=== PATIENT | female | born 1990 | race Caucasian/White ===

== ENCOUNTER 2018-09-22 23:04 | Emergency (ER) | payer OTHER ==
[~2018-09-22] VITALS: Ht 170.2 cm; Wt 65.9 kg
[2018-09-22] MEDS ORDERED: PROZ20CA11 PO (23:12)
[2018-09-22] MEDS ORDERED: VALT1TAB PO (23:13)
[2018-09-22] MEDS ORDERED: TRI-TAB2 PO (23:13)
[2018-09-23] MEDS ORDERED: METOCLOPRAMIDE INJ 10MG/2ML VIAL (J2765) IV ONE
[2018-09-23] MEDS ORDERED: KETOROLAC 30 MG/ML VIAL (J1885) IV ONE
[2018-09-23] MEDS ORDERED: diphenhydrAMINE INJ 50MG/ML VIAL (J1200) IV ONE
[2018-09-23] MEDS ORDERED: NS 1,000 ML IV ONE
[2018-09-23 00:21] LABS: BASO % 0.2 % (0.0-1.0); EOS # 0.1 10^3/uL (0.0-0.50); EOS % 0.6 % (0.0-3.0); HEMATOCRIT 41.2 % (36.0-47.0); HEMOGLOBIN 14.8 g/dl (12.0-15.5); LYMPH # 2.2 10^3/uL (1.5-6.5); LYMPH % 24.7 % (24.0-44.0); MEAN CORPUSCULAR HEMOGLOBIN 35.2 pg (27.0-33.0); MEAN CORPUSCULAR HGB CONC 35.9 g/dl (32.0-36.5); MEAN CORPUSCULAR VOLUME 97.9 fl (80.0-96.0); MONO # 0.7 10^3/uL (0.0-0.8); MONO % 8.2 % (0.0-5.0); NEUTROPHILS # 5.8 10^3/uL (1.8-7.7); NEUTROPHILS % 66.2 % (36.0-66.0); PLATELET COUNT, AUTOMATED 203 10^3/uL (150-450); RED BLOOD COUNT 4.21 10^6/uL (4.00-5.40); WHITE BLOOD COUNT 8.7 10^3/uL (4.0-10.0)
[2018-09-23 00:50] LABS: BLOOD UREA NITROGEN 14 MG/DL (7-18); CARBON DIOXIDE LEVEL 27 MEQ/L (21-32); CHLORIDE LEVEL 104 MEQ/L (98-107); CREATININE FOR GFR 0.86 MG/DL (0.55-1.30); GLOMERULAR FILTRATION RATE > 60.0 (>60); GLUCOSE, FASTING 90 MG/DL (70-100); POTASSIUM SERUM 4.1 MEQ/L (3.5-5.1); SODIUM LEVEL 139 MEQ/L (136-145)
--- NOTE | 2018-09-23 00:57 | REPVR ---
EXAM: CT Maxillofacial Without Contrast, Sinus EXAM DATE/TIME: 09/22/2018 12:17 AM CLINICAL HISTORY: 28 years old, female; Pain and signs and symptoms; Nasal congestion; Headache; Type not specified; Additional info: Headache, sinus drainage TECHNIQUE: Imaging protocol: CT Maxillofacial without intravenous contrast. Focus on the sinuses. Coronal reformatted images were created and reviewed. Radiation optimization: All CT scans at this facility use at least one of these dose optimization techniques: automated exposure control; mA and/or kV adjustment per patient size (includes targeted exams where dose is matched to clinical indication); or iterative reconstruction. COMPARISON: No relevant prior studies available. FINDINGS: Frontal sinuses: Normal. No air-fluid levels. Ethmoid air cells: Sphenoid and to a lesser degree bilateral maxillary and ethmoid sinus mucosal thickening. Sphenoid sinuses: Normal. No air-fluid levels. Maxillary sinuses: Normal. No air-fluid levels. Nasal cavity/Septum: No significant deviation of the nasal septum. Obstruction of the ostiomeatal complexes bilaterally due to congestion in the area. Soft tissues: Unremarkable. 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 IMPRESSION: 1. Sphenoid and to a lesser degree ethmoid and bilateral maxillary sinus disease. 2. Obstruction of the ostiomeatal complexes bilaterally due to congestion in the area. Electronically signed by: Samuel Miranda On 09/23/2018 00:57:22 AM
--- NOTE | 2018-09-23 01:00 | REPVR ---
EXAM: CT Head Without Contrast EXAM DATE/TIME: 09/22/2018 12:17 AM CLINICAL HISTORY: 28 years old, female; Pain; Headache not specified; Additional info: Headache, sinus drainage TECHNIQUE: Imaging protocol: Axial computed tomography images of the head without contrast. Radiation optimization: All CT scans at this facility use at least one of these dose optimization techniques: automated exposure control; mA and/or kV adjustment per patient size (includes targeted exams where dose is matched to clinical indication); or iterative reconstruction. COMPARISON: No relevant prior studies available. FINDINGS: Brain: Normal. No hemorrhage. Unremarkable white matter. No mass effect. Ventricles: Normal. No ventriculomegaly. Bones/joints: Unremarkable. No acute fracture. Sinuses: Sphenoid and ethmoid sinus mucosal thickening. Mastoid air cells: Visualized mastoid air cells are well aerated. No mastoid effusion. Soft tissues: Unremarkable. IMPRESSION: 1. Ethmoid and sphenoid sinus disease. 2. Otherwise negative noncontrast head CT. Electronically signed by: Samuel Miranda On 09/23/2018 00:59:57 AM
[2018-09-23 01:45] VITALS: BP 123/69
[2018-09-23] MEDS ORDERED: AMOXICILLIN 500 MG CAP PO ONE (02:15)
[2018-09-23] MEDS ORDERED: AMOX500C PO (02:16)
== END 2018-09-23 02:45 | disposition home or self-care (01) ==
LOC: M ED 23:04
DX: J32.3 Chronic sphenoidal sinusitis (principal); Z79.899 Other long term (current) drug therapy
CPT/HCPCS: 70450; 70486; 80048; 85025; 96374; 96375; 99284; J1200; J1885; J2765

== ENCOUNTER → 2019-07-24 | Outpatient (REF) | payer OTHER ==
[~2019-07-24] MED LIST: AMOX500C PO; PROZ20CA11 PO; TRI-TAB2 PO; VALT1TAB PO
[2019-07-24 16:25] LABS: BASO % 0.4 % (0.0-1.0); EOS % 0.6 % (0.0-3.0); HEMATOCRIT 43.2 % (36.0-47.0); HEMOGLOBIN 15.2 g/dl (12.0-15.5); MEAN CORPUSCULAR HEMOGLOBIN 34.9 pg (27.0-33.0); MEAN CORPUSCULAR HGB CONC 35.2 g/dl (32.0-36.5); MEAN CORPUSCULAR VOLUME 99.1 fl (80.0-96.0); MONO # 0.4 10^3/uL (0.0-0.8); MONO % 8.6 % (0.0-5.0); NEUTROPHILS # 2.4 10^3/uL (1.5-8.5); NEUTROPHILS % 50.2 % (36.0-66.0); PLATELET COUNT, AUTOMATED 183 10^3/uL (150-450); RED BLOOD COUNT 4.36 10^6/uL (4.00-5.40); WHITE BLOOD COUNT 4.9 10^3/uL (4.0-10.0)
[2019-07-24 16:30] LABS: ALBUMIN 4.4 GM/DL (3.2-5.2); ALT/SGPT 21 U/L (12-78); BILIRUBIN,TOTAL 1.3 MG/DL (0.2-1.0); BLOOD UREA NITROGEN 14 MG/DL (7-18); CALCIUM LEVEL 9.4 MG/DL (8.5-10.1); CARBON DIOXIDE LEVEL 30 MEQ/L (21-32); CHLORIDE LEVEL 103 MEQ/L (98-107); CREATININE FOR GFR 1.05 MG/DL (0.55-1.30); GLOMERULAR FILTRATION RATE > 60.0 (>60); GLUCOSE, FASTING 87 MG/DL (70-100); POTASSIUM SERUM 4.4 MEQ/L (3.5-5.1); SODIUM LEVEL 137 MEQ/L (136-145); TOTAL PROTEIN 7.1 GM/DL (6.4-8.2)
== END ==
LOC: M LAB REF 16:05 → M LABDRWAD 16:05
PROVIDERS: ATTEND Physician Assistant
DX: R10.30 Lower abdominal pain, unspecified (principal); R30.0 Dysuria

== ENCOUNTER 2020-06-13 10:57 | Inpatient (IN) | payer OTHER ==
[~2020-06-13] VITALS: Ht 170.2 cm; Wt 86.2 kg
[2020-06-13] VITALS (31 sets, daily range): BP systolic 108–203; BP diastolic 56–150
--- OUTSIDE RECORDS SUMMARY | 2020-06-13 11:34 | CCD ---
Author Author [facility] Organization [facility] Address Unknown Phone Unavailable Care Team Providers Care Advertising Sales Associate Name Role Phone BILLY ENRIQUE Unavailable Unavailable RING, K FAIZAN PA Unavailable Unavailable RING, K FAIZAN PA Unavailable Unavailable RING, K FAIZAN PA Unavailable Unavailable RING, K FAIZAN PA Unavailable Unavailable RING, K FAIZAN PA Unavailable Unavailable RING, K FAIZAN PA Unavailable Unavailable RING, K FAIZAN PA Unavailable Unavailable RING, K FAIZAN PA Unavailable Unavailable RING, K FAIZAN PA Unavailable Unavailable RING, K FAIZAN PA Unavailable Unavailable RING, K FAIZAN PA Unavailable Unavailable RING, K FAIZAN PA Unavailable Unavailable RING, K FAIZAN PA Unavailable Unavailable RING, K FAIZAN PA Unavailable Unavailable RING, K FAIZAN PA Unavailable Unavailable RING, K FAIZAN PA Unavailable Unavailable RING, K FAIZAN PA Unavailable Unavailable RING, K FAIZAN PA Unavailable Unavailable RING, K FAIZAN PA Unavailable Unavailable RING, K FAIZAN PA Unavailable Unavailable RING, K FAIZAN PA Unavailable Unavailable Re-disclosure Warning The records that you are about to access may contain information from federally-assisted alcohol or drug abuse programs. If such information is present, then the following federally mandated warning applies: This information has been disclosed to you from records protected by federal confidentiality rules (42 CFR part 2). The federal rules prohibit you from making any further disclosure of this information unless further disclosure is expressly permitted by the written consent of the person to whom it pertains or as otherwise permitted by 42 CFR part 2. A general authorization for the release of medical or other information is NOT sufficient for this purpose. The Federal rules restrict any use of the information to criminally investigate or prosecute any alcohol or drug abuse patient.The records that you are about to access may contain highly sensitive health information, the redisclosure of which is protected by Article 27-F of the [facility] Public Health law. If you continue you may have access to information: Regarding HIV / AIDS; Provided by facilities licensed or operated by the [facility] Office of Mental Health; or Provided by the [facility] Office for People With Developmental Disabilities. If such information is present, then the following [facility] mandated warning applies: This information has been disclosed to you from confidential records which are protected by state law. State law prohibits you from making any further disclosure of this information without the specific written consent of the person to whom it pertains, or as otherwise permitted by law. Any unauthorized further disclosure in violation of state law may result in a fine or nursing home sentence or both. A general authorization for the release of medical or other information is NOT sufficient authorization for further disc losure. Family History Family Member Name Family Member Gender Family Member Status Date o f Status Description Data Source(s) Unknown Unknown Problem [facility] ([facility]) Encounters Encounter Providers Location Date Indications Data Source(s ) Outpatient Attender: BILLY ENRIQUE 06/07/2020 01:00:00 PM [facility] Outpatient Attender: FAIZAN Guerin 07/24/2019 11:45:00 AM EDT [facility] ([facility]) Insurance Providers Payer name Policy type / Coverage type Policy ID Covered alliance party ID Covered alliance party's relationship to merrill Policy Merrill Plan Information [facility] [id number] SP [id number] [facility] [id number] [facility] [id number] [facility] Commercial [id number] Self [id number] Results ID Date Data Source [id number] 07/24/2019 12:45:00 PM EDT [facility] ([facility]) Name Value Range Interpretation Code Description Data [place] rce(s) Supporting Document(s) Bacteria identified in Urine by Culture <pending> [facility] ([facility]) Procedure Vital Signs ID Date Data Source UNK Name Value Range Interpretation Code Description Data Source(s) Body mass index (BMI) [Ratio] 22.7 kg/m2 22.7 k g/m2 [facility] ([facility]) Body height 67 [in_i] 67 [in_i] [facility] ([facility]) 5'7" Body weight 145.00 [lb_av] 145.00 [lb_av] [facility] T ([facility], [facility]) Body temperature 98.9 [degF] 98.9 [degF] [facility] ([facility], [facility]) Oxygen saturation in Arterial blood by Pulse oximetry 98 % 98 % [facility] ([facility], [facility]) Respiratory rate 16 /min 16 /min [facility] ( [facility], [facility]) Heart rate 84 /min 84 /min [facility] ([facility], [facility]) Diastolic blood pressure 86 mm[Hg] 86 mm[Hg] [facility] ([facility], [facility]) Systolic blood pressure 124 mm[Hg] 124 mm[Hg] [facility] ([facility], [facility])
[2020-06-13 11:55] LABS: HEMOGLOBIN 13.7 g/dl (12.0-15.5); MEAN CORPUSCULAR HEMOGLOBIN 31.6 pg (27.0-33.0); MEAN CORPUSCULAR HGB CONC 33.4 g/dl (32.0-36.5); MEAN CORPUSCULAR VOLUME 94.7 fl (80.0-96.0); PLATELET COUNT, AUTOMATED 176 10^3/uL (150-450); RED BLOOD COUNT 4.33 10^6/uL (4.00-5.40); WHITE BLOOD COUNT 12.5 10^3/uL (4.0-10.0)
--- NOTE | 2020-06-13 11:56 | HPEPDOC ---
Obstetrical History & Physical General Date of Admission Jun 13, 2020 at 11:31 History of Present Illness 29yo at 40+1 presents to [facility] with SROM at 0400 this morning clear no odor. Notably she called the pager at 0700 and I told her to come to [facility]. She called again at 0900 and asked if she still needed to come because her contractions are regular but did not hurt and I said yes and explained that prolonged rupture without labor progression increases her risk of infection. She at this time denied n/v/d, cp, sob, estrada, visual changes, f/c, vb, decreased fm. 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 History: No pertinent history Past Medical History Medical History depression, HSV (genital on valtrex) Surgical History: Other (WTE, hand surgery, T+A) Family History Significant Family History: No pertinent family hx Social History Marital Status: Family situation: Spouse/partner home Psychosocial History: Depression * Smoker: non-smoker Alcohol: Denies Drugs: denies Imunizations Tdap status: current Influenza Status: current Allergies Coded Allergies: No Known Allergies (Unverified , 09/22/18) Medications Scheduled Amoxicillin (Amoxicillin) 500 Mg Capsule, 500 MG PO Q8H Fluoxetine HCl (Prozac) 20 Mg Capsule, 20 MG PO DAILY Norethindrone-E.estradiol-Iron (Tri-Legest Fe-28 Day Tablet) 1 Each Tablet, 1 TAB PO DAILY Valacyclovir HCl (Valtrex) 1,000 Mg Tablet, 1 TAB PO DAILY Physical Examination Physical Examination GENERAL: Alert and oriented times three. BREAST: . ABDOMEN: Gravid and non-tender to touch. FETUS: Is vertex (VTX) by sterile vaginal examination (SVE), fetus is vertex (VTX) by ultrasound PELVIC: sterile speculum exam with gross rupture of membranes noted, clear no odors copious pooling, no visible HSV lesions pt reports no prodrome HEART RATE: Regular rate and rhythm. LUNGS: Clear to auscultation (CTA). EXTREMITIES: No edema. No clonus. Laboratory Data 24H LABS Laboratory Tests 2 06/13/20 11:34: Serology Scanned Report Hepatitis B Testing Urine Culture: No Growth Pertinent Laboratoy Data Blood Type: A+ RBC Antibody Screen: Negative HIV: Negative Hepatitis B: Negative Rapid Plasma Reagin: Nonreactive Rubella: Immune Varicella: Immune Chlamydia/Gonorrhea: Negative Group B Streptococcus: Negative Quad Screen Test: Negative Cystic Fibrosis: Negative Glucose Tolerance Test: 120 Anatomy Ultrasound Placenta Location: Posterior Normal Anatomy: Yes Placenta Previa: No Estimated Weight (grams): 3200 Steroid Therapy Steroid Therapy: No Vaginal Examination Dilation: 3 cm Effacement: 50% Station: -3 Cervical Consistency: Soft Cervical Position: Middle Presentation: Cephalic presentation (by ultrasound) Assessment Heart Rate (FHR): 130 Variability: Moderate Accelerations: Positive Decelerations: Late Tocometer Contractions: Yes Frequency: regular Multi-drug resistant Organism: No history of MDRO Assessment/Plan Assessment 29yo at 40+1 presents to L+D with SROM at 0400 this morning clear no odor. VS with mild range BP otherwise normal. No si/sx of pre-e. CAT II tracing for late decels x2 since admit but moderate variability overall reassuring. Sterile spec exam with no HSV lesions and gross ROM. SVE 3/50/-3. APC 1. genital HSV on valtrex, no lesions on spec exam, no prodrome 2. depression, no meds, denied si/hi Rh pos, GBS neg, ceph by US, EFW 3200 Plan - admit to L+D, plan to reassess in 2h and if no change will start pitocin for labor augmentation - will reassess BP serially, if continues to be mild range will order tox labs, currently no si/sx of pre-e - clear liquid diet - activity as tolerated - VS per routine - educated on risks of , CD, operative delivery - Anesthesia to see MARVIN Fields DO Jun 13, 2020 11:56
[2020-06-13] MEDS ORDERED: PRENTAB9 PO (12:03)
[2020-06-13 13:32] LABS: ALBUMIN 2.8 GM/DL (3.2-5.2); ALT/SGPT 22 U/L (12-78); BILIRUBIN,TOTAL 0.5 MG/DL (0.2-1.0); BLOOD UREA NITROGEN 13 MG/DL (7-18); CALCIUM LEVEL 8.6 MG/DL (8.5-10.1); CARBON DIOXIDE LEVEL 22 MEQ/L (21-32); CHLORIDE LEVEL 107 MEQ/L (98-107); CREATININE FOR GFR 0.77 MG/DL (0.55-1.30); GLOMERULAR FILTRATION RATE > 60.0 (>60); GLUCOSE, FASTING 82 MG/DL (70-100); LDH LACTATE DEHYDROGENASE 184 U/L (84-246); POTASSIUM SERUM 4.2 MEQ/L (3.5-5.1); SODIUM LEVEL 138 MEQ/L (136-145); URIC ACID 4.3 MG/DL (2.6-6.0)
[2020-06-13 14:21] LABS: TOTAL PROTEIN,RANDOM URINE 31.7 MG/DL (0.0-12.0)
--- NOTE | 2020-06-13 16:43 | IPNPDOC ---
Obstetrical Progress Note Date of Service Jun 13, 2020 Subjective At this time patient is having painful contractions and is requesting pain medication. Objective Vital Signs Date Time Temp Pulse Resp B/P (MAP) Pulse Ox O2 Delivery O2 Flow Rate FiO2 06/13/20 14:53 71 140/92 (108) 06/13/20 11:12 97.9 18 Assessment Heart Rate (FHR): 135 Variability: Moderate Accelerations: Positive Decelerations: None Heart Rate Tracing: Category I Tocometer Contractions: Yes Frequency: regular Assessment and Plan Additional Comments 2h after admission patient's cervix had progressed from 3 to 5cm per RN exam. She was recently checked by RN and found to be unchanged at 5cm. Will start pitocin for prolonged ROM (>12h now) with slowed progress. VS normal with exception of persisting mild range BP, no si/sx of pre-e, tox labs normal. CAT I tracing, reactive. Contractions not tracing well due to patient motion but no decels and regular contractions clinically. Patient desires pain management; discussed IV pain medications, epidural, and pudendal block and the affects of each of those on both mom and baby. Patient desires epidural at this time. Plan to reassess in approx 4h or sooner if clinically indicated. MARVIN HAY DO Jun 13, 2020 16:43
[2020-06-13] MEDS ORDERED: OXYTOCIN DRIP 30 UNITS in IV 1 EA IV SCH (16:45)
[2020-06-13] MEDS ORDERED: FENTANYL 2MCG/ML ROPIVACAINE 0.2% IN 0.9% NACL 100ML IVBAG As Ordered ONE (16:51)
[2020-06-13] MEDS ORDERED: LACTATED RINGER'S 1000 ML IV PRN (17:15)
[2020-06-13] MEDS ORDERED: FENTANYL/ROPIVACAINE/NACL BAG 100 ML EPIDURAL SCH (17:15)
[2020-06-13] MEDS ORDERED: ePHEDrine SULFATE 25 MG/5 ML(5MG/ML) SYRINGE IV PRN (17:15)
[2020-06-13] MEDS ORDERED: diphenhydrAMINE 50MG/ML VIAL (J1200) IV PRN (17:15)
[2020-06-13] MEDS ORDERED: EPIDURAL/PCA KEYS XX PRN (17:15)
[2020-06-13] MEDS ORDERED: REFRIGERATOR IV KEYS XX PRN (17:15)
[2020-06-13] MEDS ORDERED: EPIDURAL COMMENT XX SCH (17:15)
[2020-06-13] MEDS ORDERED: NALOXONE INJ 0.4MG/1ML VIAL (J2310 PER 1MG) IV PRN (17:15)
[2020-06-13] MEDS ORDERED: ONDANSETRON 4MG/2ML VIAL IV PRN (17:15)
--- NOTE | 2020-06-13 18:21 | IPNPDOC ---
Obstetrical Progress Note Date of Service Jun 13, 2020 Subjective Strip note. Objective Vital Signs Date Time Temp Pulse Resp B/P (MAP) Pulse Ox O2 Delivery O2 Flow Rate FiO2 06/13/20 18:05 83 122/62 (82) 06/13/20 11:12 97.9 18 Assessment Heart Rate (FHR): 130 Variability: Moderate Accelerations: Positive Decelerations: None Heart Rate Tracing: Category I Tocometer Contractions: Yes Frequency: regular Assessment and Plan Additional Comments Patient has just gotten her epidural. Per RN pitocin could not be started at last exam to accommodate epidural. Plan for pitocin to start at this time. Patient is meeting criteria for GHTN diagnosis. Tox labs WNL. MARVIN HAY DO Jun 13, 2020 18:21
--- NOTE | 2020-06-13 19:27 | IPNPDOC ---
Obstetrical Progress Note Date of Service Jun 13, 2020 Subjective To room for routine assessment. Patient comfortable with epidural. Objective Vital Signs Date Time Temp Pulse Resp B/P (MAP) Pulse Ox O2 Delivery O2 Flow Rate FiO2 06/13/20 18:23 82 108/64 (79) 06/13/20 11:12 97.9 18 Assessment Heart Rate (FHR): 130 Variability: Moderate Accelerations: Positive Decelerations: None Heart Rate Tracing: Category I Tocometer Contractions: Yes Frequency: regular Sterile Vaginal Examination Dilation: 8 cm Effacement (%): 100% Station: -1 Cervical Consistency: Soft Cervical Position: Anterior Postion/Presentation: Cephalic presentation (by exam) Assessment and Plan Status: Reassuring Anticipate: Vaginal Delivery Additional Comments To room for routine assessment. Now been on pitocin and comfortable with epidural. I performed exam and SVE 8/C/-1. CAT I tracing, reactive. Now more normotensive with intermittent mild ranges, no si/sx of pre-e. Will reassess in 1-2h or sooner if clinically indicated. MARVIN HAY DO Jun 13, 2020 19:26
[2020-06-14] VITALS (13 sets, daily range): BP systolic 96–143; BP diastolic 55–87
[2020-06-14 00:42] LABS: CORD GAS ABE V -4.7; CORD GAS HCO3 V 22.1 MEQ/L; CORD GAS O2 SAT V 61.8 %; CORD GAS PCO2 V 46.7 mmHg; CORD GAS PH V 7.292 UNITS; CORD GAS PO2 V 29.2 mmHg; CORD GAS SBC V 19.7 MEQ/L; CORD GAS TCO2 V 23.5 MEQ/L
--- NOTE | 2020-06-14 01:20 | DNPDOC ---
[facility] Delivery Note Delivery Note DATE OF DELIVERY: 06/14/20 PREDELIVERY DIAGNOSIS: 40+2/7 weeks' gestation, spontaneous rupture of membranes, slowed labor progress, gestational hypertension POST DELIVERY DIAGNOSIS: Delivered. PROCEDURE: Vaginal delivery, second degree perineal laceration repair DIRECTOR OF STATE: Dr. Lexa Hay DO ANESTHESIA: epidural ESTIMATED BLOOD LOSS: 200 mL. FINDINGS: first weight delayed per maternal request, Score 9/9, nuchal cord times 0. DELIVERY SUMMARY: 29yo at 40+2 presents to L+D with SROM and progressed to 5cm but then required pitocin augmentation for slowed progress. During her stay she developed gestational hypertension. She progressed to C/C/+3 and with good maternal effort delivered the head in the OA position followed by the right shoulder which delivered with jatinder downward traction. The baby had spontaneous movement and cry. Cord clamping was delayed 60s and then was cut by the FOB. Cord gasses and blood were obtained. The placenta was delivered via jatinder downward traction and was confirmed to be in-tact with a 3 vessel cord. The uterus was firm with scant bleeding shortly after pitocin administration. A second degree perineal laceration and right sidewall laceration were repaired with 2-0 vicryl in the usual fashion. The perineal skin was secured with 4-0 monocryl. The surgical sites were hemostatic and the uterus remained firm. The sponge, lap, and needle counts were correct x2. There were no complications. LEXA HAY DO Jun 14, 2020 01:20
[2020-06-14] MEDS ORDERED: OXYTOCIN DRIP 30 UNITS in IV 1 EA IV SCH (01:23)
[2020-06-14] MEDS ORDERED: MOM 30ML SUSPENSION UDC PO PRN (01:30)
[2020-06-14] MEDS ORDERED: DIBUCAINE 1% OINTMENT 30GM TOP PRN (01:30)
[2020-06-14] MEDS ORDERED: IBUPROFEN 600MG TAB PO PRN (01:30)
[2020-06-14] MEDS ORDERED: ACETAMINOPHEN TAB 650MG DOSE (2X325MG) PO PRN (01:30)
[2020-06-14] MEDS: IBUPROFEN 800 MG TAB PO PRN ×3 (04:18→23:56)
[2020-06-14 04:25] LABS: HEMATOCRIT 35.3 % (36.0-47.0); HEMOGLOBIN 11.9 g/dl (12.0-15.5); MEAN CORPUSCULAR HEMOGLOBIN 32.5 pg (27.0-33.0); MEAN CORPUSCULAR HGB CONC 33.7 g/dl (32.0-36.5); MEAN CORPUSCULAR VOLUME 96.4 fl (80.0-96.0); PLATELET COUNT, AUTOMATED 141 10^3/uL (150-450); RED BLOOD COUNT 3.66 10^6/uL (4.00-5.40); WHITE BLOOD COUNT 17.3 10^3/uL (4.0-10.0)
--- NOTE | 2020-06-14 05:08 | IPNPDOC ---
Progress Note Date of Service: Jun 14, 2020 Day#: 0 Progress Note SUBJECT: To room for assessment of episode of near syncope. At this time patient reports some nausea and feeling clammy. She otherwise denied v/d, cp, sob, estrada, visual changes, severe abd pain, f/c, heavy vaginal bleeding. She does feel like she needs to urinate but cannot. She has since delivery been ambulating and tolerating PO without issue. APC 1. GHTN diagnosed during admission, normal tox labs 2. gestational thrombocytopenia, diagnosed during admission, last PLT 141 3. genital HSV, negative SSE on admit 4. depression, not on meds, denied si/hi 5. allergy to codeine OBJECTIVE: VITAL SIGNS: Within normal limits, afebrile. Alert and oriented times three. Breath sounds clear to auscultation. Heart rate: Regular rate and rhythm, no murmurs, rubs or gallops. Abdomen: Fundus firm at U-2. Soft, NTTP. [Minimal] lochia. No bleeding from laceration site. TAUS with EMZ 0.5cm without color flow, significant bladder distention noted, cath UA performed 1000cc ASSESSMENT: 29yo PPD0 s/p c/b R sidewall and 2MLL EBL 200cc has episode of near syncope with associated clammy feeling and nausea. She also cannot urinate but has the urge. VS normal. Exam with scant vaginal bleeding, firm uterus, and no bleeding from laceration site. TAUS with thin EMS and no color flow, significant bladder distention was noted and cath UA was performed with 1000cc. CBC stat obtained and H/H went from 13.7/41 to 11.9/35. Thrombocytopenia was noted. Given normal VS and lack of significant anemia of CBC near syncope is likely not related to hypovolemia. Suspect this was a vasovagal response from bladder distention. PLAN: 1. patient to urinate within next 4h spontaneously, if cannot, recommend diez for 6-12h 2. ordering CBC for 1600 to trend H/H and platelets 3. will continue to monitor symptoms and VS, if persistent will expand near syncope work up Cadence VS, I&O, 24H, Fishbone Vital Signs/I&O Vital Signs Date Time Temp Pulse Resp B/P (MAP) Pulse Ox O2 Delivery O2 Flow Rate FiO2 06/14/20 01:29 83 113/70 (84) 06/13/20 11:12 97.9 18 I&O- Last 24 Hours up to 6 AM 06/14/20 06:00 Output Total 400 ml Balance -400 ml Laboratory Data 24H LABS Laboratory Tests 2 06/13/20 11:34: Serology Scanned Report Hepatitis B Testing 06/13/20 11:44: Nucleated Red Blood Cells % (auto) 0.0, Anion Gap 9, Glomerular Filtration Rate > 60.0, Uric Acid 4.3, Calcium Level 8.6, Total Bilirubin 0.5, Aspartate Amino Transf (AST/SGOT) 17, Alanine Aminotransferase (ALT/SGPT) 22, Alkaline Phosphatase 152H, Lactate Dehydrogenase 184, Total Protein 6.0L, Albumin 2.8L, Albumin/Globulin Ratio 0.9L 06/13/20 13:44: Urine Random Creatinine 154.0, Urine Random Total Protein 31.7H 06/14/20 00:40: Cord Venous Blood pH 7.292, Cord Venous Blood PCO2 46.7, Cord Venous Blood PO2 29.2, Cord Venous Blood HCO3 22.1, Cord Venous Blood Total CO2 23.5, Cord Venous Base Excess (Actual) -4.7, Cord Venous Base Excess (Standard) 19.7, Cord Venous Blood Oxygen Saturation 61.8 06/14/20 04:17: Nucleated Red Blood Cells % (auto) 0.0 CBC/BMP Laboratory Tests 06/13/20 11:44 06/14/20 04:17 MARVIN HAY DO Jun 14, 2020 05:07
[2020-06-14] MEDS: PRENATAL VITAMINS CHEWABLE TABLET PO SCH (09:00)
[2020-06-14] MEDS: ACETAMINOPHEN 500 MG TAB PO PRN ×2 (11:08→20:25)
[2020-06-14 19:22] LABS: HEMATOCRIT 32.4 % (36.0-47.0); HEMOGLOBIN 10.8 g/dl (12.0-15.5); MEAN CORPUSCULAR HEMOGLOBIN 32.2 pg (27.0-33.0); MEAN CORPUSCULAR HGB CONC 33.3 g/dl (32.0-36.5); MEAN CORPUSCULAR VOLUME 96.7 fl (80.0-96.0); PLATELET COUNT, AUTOMATED 150 10^3/uL (150-450); RED BLOOD COUNT 3.35 10^6/uL (4.00-5.40)
[2020-06-15] MEDS: DOCUSATE SODIUM 100MG CAPSULE PO PRN ×2 (02:34→12:27)
[2020-06-15] MEDS: ACETAMINOPHEN 500 MG TAB PO PRN (04:57)
[2020-06-15 06:00] VITALS: BP 115/66
--- NOTE | 2020-06-15 08:00 | IPNPDOC ---
Progress Note Date of Service: Jun 15, 2020 Day#: 1 Progress Note SUBJECT: Caryn is a 30yo s/p over 2nd degree perineal laceration with right sulcal laceration, doing well day #1 with intrapartum course c/b GHTN. She has been ambulating, voiding spontaneously without issue and tolerating regular diet. Breast feeding without issue. Reports lochia is decreasing. OBJECTIVE: VITAL SIGNS: Within normal limits, afebrile. Alert and oriented times three. Abdomen: Fundus firm at U-2. Soft, NTTP. ASSESSMENT: Caryn is a 30yo s/p over 2nd degree perineal laceration with right sulcal laceration, doing well day #1 with intrapartum course c/b GHTN. Only 1 mild-ranging BP since delivery. She has been afebrile, hemodynamically stable with no evidence of infection. PLAN: 1. Discharge to home tomorrow. 2. Tylenol and Motrin for pain. 3. Encourage breast feeding and ambulation. 4. Encourage regular diet as tolerated. 5. BP check 2-3 days after discharge in clinic. 6. Discussed return precautions at length. VS, I&O, 24H, Fishbone Vital Signs/I&O Vital Signs Date Time Temp Pulse Resp B/P (MAP) Pulse Ox O2 Delivery O2 Flow Rate FiO2 06/15/20 06:00 97.6 82 16 115/66 (82) 98 Room Air I&O- Last 24 Hours up to 6 AM 06/15/20 06:00 Output Total 700 ml Balance -700 ml Laboratory Data 24H LABS Laboratory Tests 2 06/14/20 19:11: Nucleated Red Blood Cells % (auto) 0.0 CBC/BMP Laboratory Tests 06/14/20 19:11 HALEY LOW DO Jun 15, 2020 08:00
[2020-06-15] MEDS: PRENATAL VITAMINS CHEWABLE TABLET PO SCH (08:18)
[2020-06-15] MEDS: IBUPROFEN 800 MG TAB PO PRN ×2 (08:19→17:21)
[2020-06-15 18:00] VITALS: BP 136/80
[2020-06-16] MEDS: ACETAMINOPHEN 500 MG TAB PO PRN ×2 (00:12→11:16)
[2020-06-16] MEDS: IBUPROFEN 800 MG TAB PO PRN (04:10)
[2020-06-16 05:51] VITALS: BP 117/65
[2020-06-16] MEDS ORDERED: IBUP-1022 PO (08:16)
[2020-06-16] MEDS ORDERED: DOK1CAP7 PO (08:16)
[2020-06-16] MEDS: PRENATAL VITAMINS CHEWABLE TABLET PO SCH (08:32)
--- NOTE | 2020-06-16 10:05 | DSES ---
DISCHARGE SUMMARY DATE OF ADMISSION: 06/13/2020 DATE OF DISCHARGE: 06/16/2020 REASON FOR ADMISSION: This lady is a 30-year-old 1, now para 1, admitted with spontaneous rupture of membranes and 40 and 1 week gestation. HOSPITAL COURSE: Had a live female infant spontaneous vaginal delivery 8 pounds 4 ounces. Apgars of 9 and 9 at one and five minutes respectively. Venous pH 7.29, base excess -4.7. Her risk factors she has depression, had HSV with prophylaxis, had a second-degree repair tear. Her admitting hemoglobin was 13.7, hematocrit 41.7, and platelets were 176,000. Discharge hemoglobin 10.8, hematocrit 32.4, and platelets were 150,000. Her discharge vital signs her blood pressure is 117/65, respirations 16, pulse 78, temperature 98.1. We discussed phlebitis, cystitis, mastitis, endometritis, cellulitis, diet, exercise, pain management; perineal, breast, and wound care. 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 Six week check at [facility]. The rest of examination is unremarkable. Normocephalic, atraumatic. Neck with full range of motion. Pupils equal and reactive to light. Distal pulses were symmetric. No evidence of DVT, PE, or superficial phlebitis. Chest is clear bilaterally to the bases. No wheezes or rhonchi. No CVA tenderness. Abdomen soft. Four quadrant bowel sounds are noted. Uterus 2 below. Lochia is moderate. Perineum is healing. No rashes, lesions, or pruritus. No arthralgia or myalgias. No complaint of joint pain. No complaint of cough, wheeze, shortness of breath, or dyspnea on exertion. No nausea, vomiting, diarrhea, or constipation. No urgency or frequency. In summary, we have a term gestation delivered a live female infant. Plans are for discharge today after the baby's bilirubin is checked, and we will have a six week at [facility]. All questions were answered, 20 minute discussion. The patient was discharged improved.
== END 2020-06-16 12:45 | disposition home or self-care (01) | DRG 806 ==
LOC: M LDO 10:57 → M LDI 11:31 → M OBS 06-14 08:40
PROVIDERS: ADMIT Obstetrics & Gynecology; ATTEND Obstetrics & Gynecology
PROC: 10E0XZZ Delivery of Products of Conception, External Approach (ICD-10-PCS; principal; 2020-06-14)
PROC: 0KQM0ZZ Repair Perineum Muscle, Open Approach (ICD-10-PCS; 2020-06-14)
DX: O48.0 Post-term pregnancy (principal); Z37.0 Single live birth; O98.52 Other viral diseases complicating childbirth; Z3A.40 40 weeks gestation of pregnancy; B00.9 Herpesviral infection, unspecified; O13.4 Gestational [pregnancy-induced] hypertension without significant proteinuria, complicating childbirth; O70.1 Second degree perineal laceration during delivery

== ENCOUNTER 2020-07-13 09:57 | Emergency (ER) | payer OTHER ==
[~2020-07-13] VITALS: Ht 170.2 cm; Wt 72.7 kg
[~2020-07-13 09:57] MED LIST changes: +DOK1CAP7 PO; +IBUP-1022 PO; +PRENTAB9 PO
[2020-07-13] MEDS ORDERED: SERT25TA21 (10:11)
[2020-07-13] MEDS ORDERED: D 50CAP2 (10:11)
[2020-07-13] MEDS ORDERED: CEPH500C (10:11)
[2020-07-13 10:54] LABS: HEMATOCRIT 41.5 % (36.0-47.0); HEMOGLOBIN 14.3 g/dl (12.0-15.5); MEAN CORPUSCULAR HEMOGLOBIN 31.6 pg (27.0-33.0); MEAN CORPUSCULAR HGB CONC 34.5 g/dl (32.0-36.5); MEAN CORPUSCULAR VOLUME 91.6 fl (80.0-96.0); PLATELET COUNT, AUTOMATED 199 10^3/uL (150-450); RED BLOOD COUNT 4.53 10^6/uL (4.00-5.40); WHITE BLOOD COUNT 6.9 10^3/uL (4.0-10.0)
[2020-07-13 11:22] LABS: AMPHETAMINES LEVEL URINE NEGATIVE (NEGATIVE); BARBITURATES URINE NEGATIVE (NEGATIVE); BENZODIAZEPINES URINE NEGATIVE (NEGATIVE); CANNABINOIDS URINE NEGATIVE (NEGATIVE); COCAINE METABOLITE URINE NEGATIVE (NEGATIVE); METHADONE URINE NEGATIVE (NEGATIVE); OPIATES URINE NEGATIVE (NEGATIVE); PHENCYCLIDINE URINE NEGATIVE (NEGATIVE)
[2020-07-13 11:38] LABS: ACETAMINOPHEN LEVEL < 2.0 UG/ML (10.0-30.0); ALBUMIN 3.9 GM/DL (3.2-5.2); ALT/SGPT 78 U/L (12-78); BILIRUBIN,DIRECT 0.2 MG/DL (0.0-0.2); BILIRUBIN,TOTAL 0.9 MG/DL (0.2-1.0); BLOOD UREA NITROGEN 15 MG/DL (7-18); CALCIUM LEVEL 9.5 MG/DL (8.5-10.1); CARBON DIOXIDE LEVEL 25 MEQ/L (21-32); CHLORIDE LEVEL 109 MEQ/L (98-107); CREATININE FOR GFR 0.77 MG/DL (0.55-1.30); GLOMERULAR FILTRATION RATE > 60.0 (>60); GLUCOSE, FASTING 135 MG/DL (70-100); POTASSIUM SERUM 4.1 MEQ/L (3.5-5.1); SALICYLATE LEVEL < 1.7 MG/DL (5.0-30.0); SODIUM LEVEL 140 MEQ/L (136-145); THYROID STIMULATING HORMONE 0.597 uIU/ML (0.358-3.740); TOTAL PROTEIN 6.7 GM/DL (6.4-8.2)
[2020-07-13 11:39] LABS: ETHYL ALCOHOL (ETHANOL) < 0.003 % (0.000-0.010)
[2020-07-13 13:26] VITALS: BP 129/84
== END 2020-07-13 13:27 | disposition home or self-care (01) ==
LOC: M ED 09:57
DX: F43.20 Adjustment disorder, unspecified (principal); F53.0 Postpartum depression